=== PATIENT | male | born 1975 | race African-American/Black ===

== ENCOUNTER 2016-09-20 06:08 | Inpatient (IN) | payer OTHER ==
--- NOTE | ~2016-09-20 | PN ---
Unit #: [id number] #: [id number] Patient: EDWIGE JOYNER [id number] [facility] [address] [place] [address] [id number] I MR#: [id number] NAME: EDWIGE JOYNER ROOM: P171 Age: 40 Sex: M Admission Date: 09/20/2016 : 1975 Attending Physician: Ivan Jain M.D. Admitting Physician: Ivan Jain M.D. Primary Care Physician: Angel Jacob PROGRESS NOTES DATE 09/22/2016 DISCUSSION Edwige continues to be isolative in his room with a dysphoric and irritable mood. He is alert and fully oriented with memory and concentration fair. His thought processes are logical with no active psychosis. ASSESSMENT 1. Cocaine dependence. 2. Mood disorder not otherwise specified. PLAN Continue current treatment plan and encourage full participation in groups and activities. Dictated by... Angel PimentelH/bzg TD: 09/23/2016 11:47 JOB #: [id number] ERICK PROGRESS NOTES X Ivan Jain MD PROGRESS NOTE
--- NOTE | ~2016-09-20 | DS ---
Unit #: [id number] #: [id number] Patient: CHRISTIANO JOYNER [id number] [place] [address] [id number] MR#: [id number] NAME: CHRISTIANO JOYNER. ROOM: P171 Age: 40 Sex: M Admission Date: 09/20/2016 : 1975 Discharge Date: 09/26/2016 Attending Physician: Ivan Jain M.D. Primary Care Physician: Jesus Shah M.D. DISCHARGE SUMMARY REASON FOR ADMISSION Christiano is a 40-year-old man who reports increasing hopelessness, helplessness, and cocaine abuse causing suicidal ideation. He was unable to contract for safety and was admitted for stabilization. DIAGNOSTIC STUDIES LABORATORY RESULTS: Please see hospital chart. HOSPITAL COURSE The patient was admitted and placed on suicide precautions. Wellbutrin XL 150 mg daily was initiated and the patient enrolled in psychotherapy groups and activities. He complained of vague auditory hallucinations, but he denied these on a later day. On the date of discharge, he had no further SI, intent, or plan and had stabilized in his mood. He was able to contract for safety at that time. DISCHARGE DIAGNOSES AXIS I: Cocaine dependence and cocaine-induced mood disorder AXIS II: Antisocial traits. AXIS III: None. AXIS IV: AXIS V: DISCHARGE INSTRUCTIONS Follow up with [facility]. DISCHARGE MEDICATIONS Wellbutrin XL 150 mg daily for depression. CONDITION AT DISCHARGE Improved. PROGNOSIS Fair to good. DIET AND ACTIVITY Per primary care doctor. Dictated by... Ivan Jain M.D. Unit #: [id number] #: [id number] Patient: CHRISTIANO JOYNER MR/modl TD: 09/27/2016 03:09 JOB #: [id number] DISCHARGE SUMMARY Page 1 of 1 X Ivan Jain MD X DISCHARGE SUMMARY
--- NOTE | ~2016-09-20 | PN ---
Unit #: [id number] #: [id number] Patient: EDWIGE JOYNER [id number] [facility] [address] [place] [address] [id number] I MR#: [id number] NAME: EDWIGE JOYNER ROOM: P171 Age: 40 Sex: M Admission Date: 09/20/2016 : 1975 Attending Physician: Ivan Jain M.D. Admitting Physician: Ivan Jain M.D. Primary Care Physician: Angel Jacob PROGRESS NOTES DATE 09/25/2016 DISCUSSION Edwige is out in the milieu participating with peers and some activities. His mood is irritable with a congruent affect. He is alert and fully oriented with no evidence of response to internal stimuli and he reports no psychosis. ASSESSMENT Cocaine dependence. PLAN Continue current treatment plan. Dictated by... Ivan Jain M.D. [facility]/to TD: 09/26/2016 14:02 JOB #: [id number] ERICK PROGRESS NOTES X Ivan Jain MD PROGRESS NOTE
--- NOTE | ~2016-09-20 | PA ---
Unit #: [id number] #: [id number] Patient: EDWIGE STREETER [id number] [facility] [address] [place] [address] [id number] I MR#: [id number] NAME: EDWIGE STREETER. ROOM: P171 Age: 40 Sex: M Admission Date: 09/20/2016 : 1975 Date of Assessment: Attending Physician: Ivan Jain M.D. Admitting Physician: Ivan Jain M.D. Primary Care Physician: Jesus Shah M.D. PSYCHIATRIC ASSESSMENT DATE OF SERVICE 09/20/2016. INFORMANTS The patient, reliable; [facility] records, reliable; [facility], reliable. CHIEF COMPLAINT Depression and substance abuse. HISTORY OF PRESENT ILLNESS Mr. Streeter is a 40-year-old man, who presented to the emergency room complaining of severe depression and chronic cocaine use. He says "it is too much" and had multiple suicide plans. He has had increasing hopelessness and helplessness and states that he uses his cocaine to escape from the troubles of life. He was unable to contract for safety and [facility]. PAST PSYCHIATRIC HISTORY The patient reports he was recently prescribed Wellbutrin, but has not taken it and has not had the prescription filled. He was treated at [facility] in the past, but could not be specific with dates. FAMILY PSYCHIATRIC HISTORY There is a family history of addictions in his biological father. SOCIAL HISTORY The patient is a [employer], who is currently unemployed and stopped working in June, because of depression. He has been staying with his grandmother, but is erratically homeless and is from his . He is currently unemployed with significant financial stress. PAST MEDICAL HISTORY The patient has no chronic medical problems. MEDICATIONS None currently. ALLERGIES No known medication allergies. SUBSTANCE USE HISTORY Unit #: [id number] #: [id number] Patient: EDWIGE STREETER As noted, the patient has been using up to 3 g of cocaine daily. MENTAL STATUS EXAMINATION The patient presented as a mildly disheveled man, who appeared his stated age. Vital signs were temperature 98.7, blood pressure 136/76, respirations 18, pulse 54. His speech was soft, sparse, but easily understood. Musculoskeletal examination was calm. His mood was depressed with a congruent affect. He was alert and fully oriented. Memory and concentration were fair. Thought processes were goal directed with no evidence of psychosis. The patient reported suicidal ideation and could not contract for safety outside of the hospital. His insight and judgment were fair. Fund of knowledge and abstraction were fair. ASSETS AND LIABILITIES The patient knows local resources and presents voluntarily for treatment. He also has a history of employment liabilities include difficulty obtaining and maintaining sobriety and threatened loss of housing. ADMITTING DIAGNOSES AXIS I: Cocaine dependence with cocaine-induced mood disorder, F14.24. AXIS II: Some antisocial traits noted. AXIS III: None acute. AXIS IV: AXIS V: PSYCHIATRIC PLAN The patient was admitted and placed on suicide precautions. He did not appear to require the detox protocol at this time, although we will continue to monitor and will initiate detox protocol as indicated. He will enroll in dual diagnosis groups and activities. We will initiate antidepressant treatment with Wellbutrin XL 150 mg daily. TREATMENT GOALS Resolution of SI, establishment of sobriety, improvement in insight, and improvement in coping skills. DISCHARGE PLANNING Follow up with community mental health for chemical dependence and mental health resources. ESTIMATED LENGTH OF STAY 5 days. Dictated by... Ivan Jain M.D. CHAYA/tylor TD: 09/21/2016 06:33 JOB #: [id number] Unit #: [id number] #: [id number] Patient: EDWIGE STREETER Sofia PSYCHIATRIC ASSESSMENT X Ivan Jain MD X PSYCHIATRIC ASSESSMENT
--- NOTE | ~2016-09-20 | HP ---
Unit #: [id number] #: [id number] Patient: EDWIGE JOYNER [id number] [place] [address] [id number] I MR#: [id number] NAME: EDWIGE JOYNER. ROOM: P171 Age: 40 Sex: M Admission Date: 09/20/2016 : 1975 Attending Physician: Ivan Jain M.D. Admitting Physician: Ivan Jain M.D. Primary Care Physician: Jesus Shah M.D. HISTORY AND PHYSICAL HISTORY OF PRESENT ILLNESS The patient is a 40 year old admitted to [facility] because of his drug use. He uses cocaine. PAST MEDICAL HISTORY 1. Long history of illicit substance abuse to include cocaine. 2. High blood pressure. PAST SURGICAL HISTORY Nothing reported. ALLERGIES Penicillin SOCIAL HISTORY Smokes less than one pack per day. Drinks alcohol rarely. Admits to use of cocaine. FAMILY HISTORY Medically noncontributory. REVIEW OF SYSTEMS CONSTITUTIONAL: No fever or chills. HEENT: Denies any sore throat, ear pain or runny nose. CARDIOVASCULAR: Denies chest pain, irregular heart rhythm or palpitations. CHEST: Denies shortness of breath or cough. No hemoptysis. GASTROINTESTINAL: Denies nausea, vomiting, diarrhea or chronic constipation. ENDOCRINE: Denies history of increased thirst or urination. No recent significant weight loss or gain. GENITOURINARY: Denies dysuria, frequency, or hematuria. SKIN: Denies any rashes. HEMATOLOGIC: Denies history of increased bleeding or bruising. MUSCULOSKELETAL: Denies any hot, swollen joints. No generalized muscle pain. NEUROLOGIC: Denies problems with vision or speech. No frequent, severe headaches. No numbness, tingling or weakness in any extremities. Denies loss of bladder or bowel control. CURRENT MEDICATIONS 1. Wellbutrin XL 150 mg daily 2. Milk of Magnesia p.r.n. Unit #: [id number] #: [id number] Patient: EDWIGE JOYNER 3. Maalox p.r.n. 4. Tylenol p.r.n. PHYSICAL EXAMINATION GENERAL: Alert, well-nourished, in no apparent distress. VITAL SIGNS: Blood pressure 122/72, heart rate 80, respirations 16, temperature 98.6. WEIGHT: 175 pounds. HEIGHT: 5'10". SKIN: Warm and dry without rash or lesion. HEENT: Normocephalic. TMs not viewed. Oral and nasal passages clear. Conjunctivae clear. Pupils equal, round and reactive to light and accommodation. Extraocular movements intact. NECK: Supple without lymphadenopathy or thyromegaly. HEART: Regular rate and rhythm without murmur. LUNGS: Clear. ABDOMEN: Soft, nontender. : Not done. EXTREMITIES: No evidence of cyanosis, clubbing or edema. Moves all extremities without focal deficit. NEUROLOGICAL: Grossly within normal limits. Cranial Nerves: II: Visual youngblood are intact. III, IV AND : Extraocular movements are intact. Pupils are equal, round and reactive to light. V: Facial sensation is grossly normal. VII: Facial movements and expression are normal. VIII: Auditory acuity grossly intact. IX, X: Uvula is midline. Phonation is normal. XI: Patient shrugs shoulders and turns head normally. XII: Tongue protrudes in the midline. Sensory and Motor Function: Sensory and motor sensation is grossly normal. Motor: moves all extremities well. Coordination: Gait is normal. Deep Tendon Reflexes: Intact. IMPRESSION Psychiatric admission RECOMMENDATIONS PSYCHIATRIC: Per psychiatrist. MEDICAL: I see no contraindications to participating in facility's activities. MEDICAL PROGNOSIS Good. MEDICAL CONDITION Stable. Dictated by... Shaila Diaz P.A.-C. for Angel Persaud/tex TD: 09/21/2016 02:18 Unit #: [id number] #: [id number] Patient: EDWIGE JOYNER JOB #: [id number] HISTORY AND PHYSICAL X Shaila Diaz X HISTORY AND PHYSICAL
--- NOTE | ~2016-09-20 | PN ---
Unit #: [id number] #: [id number] Patient: EDWIGE JOYNER [id number] [facility] [address] [place] [address] [id number] I MR#: [id number] NAME: EDWIGE JOYNER ROOM: P171 Age: 40 Sex: M Admission Date: 09/20/2016 : 1975 Attending Physician: Ivan Jain M.D. Admitting Physician: Ivan Jain M.D. Primary Care Physician: Angel Jacob PROGRESS NOTES DATE 09/23/2016 DISCUSSION Edwige continues to have a dysphoric mood and downcast affect. He is alert and fully oriented with intact, memory and concentration and he reports mild auditory hallucinations but does not appear to be responding to internal stimuli. He has suicidal ideation. He attends very few groups and activities. ASSESSMENT Cocaine dependence, depressive disorder NOS. PLAN Continue current treatment plan. Dictated by... Angel Pimentel/tex TD: 09/25/2016 23:57 JOB #: [id number] ERICK PROGRESS NOTES Page 1 of 1 X Ivan Jain MD X PROGRESS NOTE
--- NOTE | ~2016-09-20 | PN ---
Unit #: [id number] #: [id number] Patient: EDWIGE JOYNER [id number] [facility] [address] [place] [address] [id number] MR#: [id number] NAME: EDWIGE JOYNER ROOM: P171 Age: 40 Sex: M Admission Date: 09/20/2016 : 1975 Attending Physician: Ivan Jain M.D. Admitting Physician: Ivan Jain M.D. Primary Care Physician: Angel Jacob PROGRESS NOTES DATE 09/21/2016 DISCUSSION Edwige continues to be in bed for much of the day and has participated in few groups and activities. His mood is irritable with a congruent affect. He is alert and fully oriented. Memory and concentration are only fair and his thought processes are goal-directed with no evidence of psychosis. He does report ongoing suicidal ideation. ASSESSMENT Cocaine dependence. PLAN Continue current treatment plan. Dictated by... Angel Pimentel/bisi TD: 09/22/2016 09:10 JOB #: [id number] ERICK PROGRESS NOTES X Ivan Jain MD PROGRESS NOTE
== END 2016-09-26 16:00 | disposition home or self-care (01) | DRG 897 ==
LOC: P1E 06:08 → POF 12:38 → P1E 12:41
DX: F14.24 Cocaine dependence with cocaine-induced mood disorder (principal); R45.851 Suicidal ideations; F60.2 Antisocial personality disorder; I10 Essential (primary) hypertension; Z88.0 Allergy status to penicillin; F17.210 Nicotine dependence, cigarettes, uncomplicated